=== PATIENT | female | born 1970 | race Caucasian/White ===

== ENCOUNTER 2016-11-20 10:38 | Observation (INO) | payer OTHER ==
[2016-11-20] MEDS ORDERED: Ondansetron INJ* 2 MG/ML VIAL ONE ×2 (11:24→13:10)
[2016-11-20] MEDS ORDERED: Scopolamine 1.5 mg* PATCH ONE (11:24)
[2016-11-20 11:37] LABS: Hematocrit 40 % (35-47); Hemoglobin 13.5 g/dl (12.0-16.0); Mean Corpuscular HGB Conc 34 g/dl (31-36); Mean Corpuscular Hemoglobin 31 pg (27-31); Mean Corpuscular Volume 93 fL (80-97); Mean Platelet Volume 8 um3 (7.4-10.4); Red Blood Count 4.31 10^6/ul (4.0-5.4); Red Cell Distribution Width 13 % (10.5-15)
[2016-11-20 11:51] LABS: Anion Gap 7 mmol/L (2-11); BUN/Creatinine Ratio 5.8 (8-20); Blood Urea Nitrogen 4 mg/dL (6-24); CO2 Carbon Dioxide 24 mmol/L (22-32); Calcium 9.3 mg/dL (8.6-10.3); Chloride 101 mmol/L (101-111); EGFR African American 118.3 (>60); Glucose 86 mg/dL (70-100); Potassium 3.7 mmol/L (3.5-5.0); Sodium 132 mmol/L (133-145)
[2016-11-20] MEDS ORDERED: LORazepam TAB(*) 1 MG PO ONE (12:00)
[2016-11-20] MEDS ORDERED: oxyCODONE SR TAB(*) 10 MG TAB.SR PO ONE (12:00)
[2016-11-20] MEDS ORDERED: ceFAZolin 1 GM in Dextrose (*) 1 GM/50 ML BAG IVPB ONE (12:00)
[2016-11-20] MEDS ORDERED: Ibuprofen TAB* 800 MG PO ONE (12:00)
[2016-11-20] MEDS ORDERED: Iohexol 350 (CONTRAST) 200 ML MDV IV ONE ×2 (12:35→14:47)
[2016-11-20] MEDS ORDERED: Heparin 2 UNITS/ML IVPREMIX* 2,000 ML IV ONE (12:36)
[2016-11-20] MEDS ORDERED: Midazolam* 1 MG/ML 5 ML VIAL (5 MG) ONE ×2 (12:42→14:45)
[2016-11-20] MEDS ORDERED: Lidocaine 1% INJ* 10 MG/ML 30 ML SDV ONE (12:42)
[2016-11-20] MEDS ORDERED: fentaNYL* 50 MCG/ML 2 ML VIAL (100 MCG VIAL) ONE ×4 (12:42→14:45)
[2016-11-20] MEDS ORDERED: Ketorolac INJ* 30 MG/ML 1 ML VIAL ONE ×4 (12:42→15:14)
[2016-11-20] MEDS ORDERED: nitroGLYCERIN DRIP* 0 ML ONE (12:43)
[2016-11-20] MEDS ORDERED: Metoclopramide IV* 5 MG/ML 2 ML VIAL ONE (13:15)
[2016-11-20] MEDS ORDERED: nitroGLYCERIN DRIP* 250 ML ONE (13:17)
[2016-11-20] MEDS ORDERED: HYDROmorphone* 1 MG/ML 1 ML SYR ONE ×4 (15:22→15:56)
[2016-11-20] MEDS: HYDROmorphone PCA* 20 MG/20 ML PCA.SYRING ONE ×2 (16:20→19:33)
[2016-11-20 16:59] VITALS: BP 143/102
--- NOTE | 2016-11-21 01:32 | HP ---
HISTORY AND PHYSICAL: DATE OF ADMISSION: 11/20/16 PRIMARY CARE PROVIDER: Dr. Marleny Ferrell. ATTENDING PHYSICIAN WHILE IN THE HOSPITAL: Aileen Jean MD* (report dictated by Alejandro Spann NP) CHIEF COMPLAINT: Uterine fibroid embolization. HISTORY OF PRESENT ILLNESS: Mrs. Mayers is a 45-year-old female patient who has had issues with uterine fibroids for sometime. She has had pelvic pain and irregular vaginal spotting. In addition to this, she has had menorrhagia and fibroid uterus. She had followed closely with her primary HAND TIER and was discussing options to help her. She had undergone ablation 4 years ago, but despite this the pelvic pain had become severe. She was having menstrual cramping. She is having heavy vaginal bleeding and her symptoms are becoming uncontrolled and she felt she needed further care. She sought care with Dr. Mitchell as she felt the best option would be a uterine fibroid embolization. She underwent evaluation on September 26 and it was felt that she would proceed with uterine fibroid embolization. She underwent the procedure today. We were asked to evaluate for admission. She was evaluated in the postoperative setting. She states that she is feeling well. She does have a significant amount of cramping and pain to her pelvic area. She denies having any nausea. She states she feels like she is having a severe menstrual cramp. She states the pain is 8/10. She denies having any chest pain, shortness of breath, back pain and denies having any chest pain. The patient states that she does not feel lightheaded or dizzy. We were asked to evaluate for admission. PAST MEDICAL HISTORY: Significant for: 1. Uterine fibroid. 2. Ovarian cyst. 3. Anxiety. PAST SURGICAL HISTORY: She has had an ablation. HOME MEDICATIONS: According to her preop list include: 1. OxyContin 10 mg every 8 hours as needed. 2. Sonata 10 mg at bedtime. 3. Tramadol 50 mg p.o. b.i.d. as needed. 4. Scopolamine patch 1 patch transdermally every 72 hours. 5. Zofran 4 mg every 6 hours as needed. 6. Naproxen 500 mg p.o. b.i.d. 7. Methylphenidate 20 mg p.o. as directed. 8. Melatonin 5 mg at bedtime. 9. Ativan 1 mg every 6 hours as needed. 10. Toradol 10 mg every 8 hours. 11. Ibuprofen 600 mg p.o. daily as needed. 12. Neurontin 300 mg at bedtime. 13. Colace 100 mg p.o. b.i.d. 14. Soma 350 mg p.o. t.i.d. as needed. 15. Calcium with vitamin D 1 tablet p.o. daily. ALLERGIES: To medications include no known drug allergies. FAMILY HISTORY: Mother is a type 2 diabetic. Father's history is reviewed and noncontributory. SOCIAL HISTORY: She does not smoke. Occasionally drinks alcohol. Surrogate decision maker is her . REVIEW OF SYSTEMS: There is no documented fever. She denied having any significant weight change. There was no double vision. There is no ear discharge. She denies having any recent rhinorrhea. No sore throat. No thyroid enlargement. Denies having any chest pain. There is no orthopnea. No nocturnal dyspnea. There is lower pelvic pain and uterine cramping. She denies having any nausea or vomiting. She denies any loss of consciousness. Review of 14 systems completed, all others were negative. PHYSICAL EXAMINATION GENERAL: At this time, Mrs. Mayers is a 45-year-old female patient. She does not appear to be in any acute distress. She is sitting in the postoperative bed. She is awake and alert. She is a little drowsy but she awakens to her name and follows commands. VITAL SIGNS: Reveal blood pressure 111/74, pulse 87, respirations 18, and O2 sat 100%. HEENT: Head is atraumatic, normocephalic. Eyes: EOMs are intact. Sclerae anicteric and not pale. NECK: Supple. Throat: Oral mucosa appears to be moist. No oropharyngeal erythema. LUNGS: Clear to auscultation bilaterally. No wheezes, rales, or rhonchi. HEART: Sounds S1, S2. Regular rate and rhythm. No murmurs, rubs, or gallops. ABDOMEN: Soft, flat, nontender. Bowel sounds were present. EXTREMITIES: Pulses were 2+ throughout. She is able to move the upper extremities with 5/5 strength. Lower extremities, she is not moving them as she did have a groin access. The distal CSM checks to the lower extremities are intact. NEUROLOGIC: She is awake, alert, and oriented x3. No gross focal deficits. SKIN: Intact. She has a puncture site to the right groin. It is clean, dry, and intact. Again, distal CSM checks are intact. DIAGNOSTIC STUDIES/LAB DATA: Labs preoperatively; sodium 132, potassium 3.7, chloride 101, bicarb 24, BUN 4, creatinine 0.69, and glucose 86. Beta-hCG is negative. WBC is 7.0, RBC of 4.31, hemoglobin 13.5, hematocrit 40, and platelet count 343. MRI of the pelvis showed MRI findings consistent with multiple uterine fibroids , largest submucosal fibroid with maximal dimension of 4.2 cm. Old medical records are reviewed. ASSESSMENT AND PLAN: Mrs. Mayers is a 45-year-old female patient coming into the interventional services today for an elective uterine fibroid embolization. We were asked to evaluate for admission. She will be admitted under observation status for: 1. Status post uterine fibroid embolization. We will defer the management to Dr. Mitchell's team. We did order antiemetics and we also ordered pain management. 2. Anxiety: Continue with supportive care. 3. History of uterine fibroids: She can follow with her primary HAND TIER and Dr. Mitchell. 4. Ovarian cyst: Follow with her primary HAND TIER. 5. DVT prophylaxis: I ordered SCDs. 6. Fluids, electrolytes, and nutrition: She can have a clear liquid diet and will progress to a regular diet. 7. Code status: Full code. TIME SPENT: Time spent on the admission was 60 minutes; greater than half the time was spent [id number] with the patient obtaining my history and physical, the other half time spent going over the plan of care with the patient and implementing plan of care. I discussed the plan of care with my attending, Dr. Jean, she is in agreement. ALEJANDRO SPANN NP CC: Dr. Marleny Ferrell; Dr. Mitchell * [id number]/[facility] #: [id number] MTDD
--- NOTE | 2016-11-22 02:41 | DS ---
AMENDED REPORT TO CORRECT [facility] CATH ACCOUNT DISCHARGE SUMMARY: DATE OF ADMISSION: 11/20/16 DATE OF DISCHARGE: 11/21/16 PRIMARY CARE PROVIDER: Dr. Marleny Ferrell. DISCHARGING PROVIDER: CASSIDY Mosqueda. SUPERVISING PHYSICIAN: Roberto Tian MD.* (DICTATED BY CASSIDY MOSQUEDA) INTERVENTIONAL RADIOLOGIST: Alek Mitchell MD. PRIMARY DISCHARGE DIAGNOSES: 1. Status post uterine fibroid embolization. 2. Anxiety. 3. Uterine fibroids. SECONDARY DISCHARGE DIAGNOSES: 1. Calcium vitamin D supplement 1 tablet p.o. daily. 2. Soma 350 mg p.o. t.i.d. 3. Docusate 100 mg p.o. b.i.d. x7 days. 4. Gabapentin 300 mg p.o. at bedtime. 5. Ibuprofen 600 mg p.o. b.i.d. as needed for pain. 6. Toradol 10 mg p.o. q.8 hours. 7. Ativan 1 mg p.o. q.6 hours as needed for anxiety. 8. Melatonin 5 mg p.o. at bedtime. 9. Methylphenidate 20 mg as directed. 10. Naproxen 500 mg p.o. b.i.d. 11. Zofran 4 mg p.o. q.6 hours x5 days. 12. Scopolamine patch 1 patch applied transdermally q.72 hours. 13. Tramadol 50 mg p.o. b.i.d. as needed for pain. 14. Sonata 10 mg p.o. at bedtime. 15. OxyContin 10 mg p.o. q.12 hours as needed for pain. MEDICATIONS CHANGES: 1. Docusate. 2. Toradol. 3. Zofran. 4. Scopolamine patch. 5. OxyContin. Of note, the patient was advised to not to take the naproxen and ibuprofen with ketorolac. HOSPITAL IMAGING: None, please see procedure notes from Dr. Mitchell. HOSPITAL COURSE: This is a 45-year-old female with history of symptomatic uterine fibroids who underwent uterine fibroid embolization by Dr. Mitchell, 11/20. The patient tolerated the procedure well. She experienced some significant pain and nausea overnight, but symptoms that are now well controlled with oral antiemetics and analgesic medications. The patient is given postcare instructions by Dr. Mitchell and will plan to be seen by him next week. The patient does have a history of anxiety which seemed to be adequately controlled during her hospital stay and did not contribute to any complications. DISPOSITION: The patient is being discharged to home. Followup with primary care provider and Dr. Mitchell is recommended. CASSIDY MOSQUEDA CC: Alek Mitchell MD; Dr. Marleny Ferrell * [id number]/[facility] #: [id number] MTDD
--- NOTE | 2016-11-26 19:37 | RAD ---
CPT II Codes: 6045F CPT I Codes: 58291, 94922, 07022, 30026, 17566, +[id number], 23669, +[id number], UTERINE ARTERY EMBOLIZATION FROM A RIGHT COMMON FEMORAL ARTERIOTOMY History: Pain and vaginal bleeding secondary to uterine fibroids. Comparison: MRI of the pelvis October 09, 2016 and ultrasound of the pelvis dated August 26, 2016 Anesthesia: Conscious sedation with IV Fentanyl and Versed as well as local 1% lidocaine injected locally at the arteriotomy site. Additional medications: . Toradol 50 mg IV. Toradol 30 mg intra-arterial (15 mg injected into each uterine artery). Scopolamine patch placed immediately before the embolization procedure. Ancef 1 g IV administered immediately before the procedure. 450 mcg IA nitroglycerin administered intermittently throughout the procedure to alleviate arterial spasm. Zofran 4 mg IV Reglan 10 mg IV Ativan 1 mg p.o. administered prior to the procedure. Oxycodone 10 mg p.o. administered prior to the procedure Ibuprofen 800 mg p.o. administered prior to the procedure. Contrast: 70 mL Omnipaque 350 Fluoroscopy Time: 32.3 minutes PROCEDURE NOTE AND INTRAPROCEDURAL IMAGING FINDINGS: Immediately prior to the procedure the patient signed consent after thoroughly discussing all risks and benefits. The patient was positioned on the fluoroscopy table in the supine position and the bilateral groins were shaved, prepped and draped in standard sterile fashion. Using fluoroscopic imaging the location of the right common femoral head was marked externally with a skin marker on the patient's groin. Utilizing sonographic guidance and palpation the right common femoral artery was cannulated overlying the right femoral head with an 18-gauge needle. An ultrasound images were saved. A 0.035" Bentson wire was slowly and smoothly advanced to the aortic bifurcation under fluoroscopic imaging. No buckling of the wire was visualized to indicate dissection. Over the wire the 5 Norwegian sidearm sheath was advanced centrally into the external iliac artery under fluoroscopic control. An arteriogram through the side arm of the sheath was performed demonstrating appropriate intraluminal access with brisk distal right lower extremity arterial flow. Utilizing a Bentson wire and 5-Norwegian Contra 2 flush catheter the left common iliac artery was accessed and imaged angiographically. Contrast angiography was performed to detail the branches of the anterior posterior divisions of the left internal iliac artery which had depicted the uterine artery providing blood flow to the patient's uterus and fibroids. Contrast blush was observed outlining the patient's fibroid uterus. Arteriograms in multiple oblique projections were performed to best discern the branch point of the uterine artery. Once the uterine artery was identified, a Renegade High-flow microcatheter and microwire were advanced into the parent catheter and, in conjunction with contrast angiography, the uterine artery was identified and selected with the micro catheter. Prior to embolization, contrast injection in the lateral portion of the uterine artery demonstrated no large, obvious collateral blood flow to the ovaries and a definite cervicovaginal branch was not seen descending inferiorly. Intra-arterial nitroglycerin was intermittently injected to alleviate arterial spasm. Under fluoroscopic control approximately 1/2 vial of 500 micron Embozenes followed by \\R\\1/2 vial of 700 micron Embozenes were slowly injected into the uterine artery to near complete stasis. [place] through the embolization 15 mg of Toradol was injected intra-arterially. The microcatheter was pulled back into the more proximal descending portion of the uterine artery and contrast angiography depicted near complete stasis of the uterine artery. The microcatheter was removed and replaced with the Jimdoson 0.035" guidewire. Utilizing the Borjas wire a "Isaiah Loop" was formed in the inferior aorta and the wire and catheter combination were utilized to access the ipsilateral right common iliac artery and then select the ipsilateral right internal iliac artery. Once the right uterine artery was identified, the Renegade High-flow microcatheter and microwire were advanced into the parent catheter and, in conjunction with contrast angiography, the uterine artery was identified and selected with the micro catheter. Prior to embolization, contrast injection in the lateral portion of the uterine artery demonstrated no large, obvious collateral blood flow to the ovaries and a definite cervicovaginal branch was not seen descending inferiorly. Intra-arterial nitroglycerin was intermittently injected to alleviate arterial spasm. Under fluoroscopic control the remaining 1/2 vial of 500 micron Embozenes followed by the remaining \\R\\1/4 vial of 700 micron Embozenes were slowly injected into the uterine artery to near complete stasis. [place] through the embolization 15 mg of Toradol was injected intra-arterially. The microcatheter was pulled back into the more proximal descending portion of the uterine artery and contrast angiography depicted near complete stasis of the uterine artery. The micro catheter was removed, replaced with a 0.035" wire and the Isaiah's loop was used to access the contralateral left common iliac artery, takedown the loop in the catheter and then remove both the wire and catheter. The access sheath was removed and pressure was held at the common femoral arteriotomy for approximately 15 minutes. There were no signs of bleeding at the right groin access site and the site was dressed with sterile gauze and Tegaderm. The patient tolerated the procedure well and was transferred to the short stay recovery unit in stable condition for routine overnight observation and pain and nausea control. IMPRESSION: 1. Pelvic arteriography demonstrates a large uterine fibroid. 2. Pelvic arteriography as described in the body of the report. 3. Successful bilateral uterine artery embolization utilizing a total of 1 full vial of 500 micron Embozenes and \\R\\3/4 vial 700 micron Embozenes. 4. Post embolization uterine arteriography demonstrates near complete stasis of blood flow in each uterine artery. Plan: 1. The patient is to be admitted to short state recovery unit for routine overnight observation and pain and nausea control. 2. Outpatient management and follow-up according to Interventional Radiology protocol.
== END 2016-11-21 13:10 | disposition home or self-care (01) ==
LOC: CHICATH 10:38 → SSU 16:05
PROVIDERS: ADMIT Radiology Diagnostic Radiology; ATTEND Radiology Diagnostic Radiology
DX: D25.9 Leiomyoma of uterus, unspecified (principal)
CPT/HCPCS: 36415; 37243; 80048; 84702; 85025; 94760; A9270-GY; C1887; J0690; J1170; J1644; J1885; J2001; J2250; J2270; J2405; J3010

== ENCOUNTER 2018-09-25 08:11 | Emergency (ER) | payer OTHER ==
[2018-09-25 08:18] VITALS: BP 154/100
--- NOTE | 2018-09-25 08:43 | UC ---
Elbow Pain - HPI Summary HPI Summary: Slipped and fell on the ice last night and landed directly on right elbow. Has pain and inability to move at the right elbow. - History of Current Complaint Chief Complaint: UCUpperExtremity Stated Complaint: R ARM INJURY Time Seen by Provider: 09/25/18 08:37 Hx Obtained From: Patient Hx Last Menstrual Period: unk Onset/Duration: Hours Severity Initially: Moderate Severity Currently: Moderate Pain Intensity: 6 Pain Scale Used: 0-10 Numeric Location Of Pain: Is Discrete @ - RIGHT ELBOW Character: Sharp Aggravating Factor(s): Movement Alleviating Factor(s): Nothing Associated Signs And Symptoms: Positive: Swelling - Allergies/Home Medications Allergies/Adverse Reactions: Allergies Allergy/AdvReac Type Severity Reaction Status Date / Time No Known Allergies Allergy Verified 09/25/18 08:18 Home Medications: Home Medications Bupropion XL* [Wellbutrin XL *] 150 mg PO DAILY 09/25/18 [History Confirmed 04/05] Ibuprofen [Advil] 600 mg PO ONCE PRN 09/25/18 [History Confirmed 09/25/18] Zolpidem Tartrate [Ambien] 10 mg PO QPM PRN 09/25/18 [History Confirmed 09/25/18 ] PMH/Surg Hx/FS Hx/Imm Hx Previously Healthy: Yes - Surgical History Surgical History: None - Family History Known Family History: Positive: Non-Contributory - Social History Alcohol Use: Occasionally Substance Use Type: None Smoking Status (MU): Never Smoked Tobacco Review of Systems All Other Systems Reviewed And Are Negative: Yes Constitutional: Positive: Negative Respiratory: Positive: Negative Cardiovascular: Positive: Negative Gastrointestinal: Positive: Negative Musculoskeletal: Positive: Arthralgia, Decreased ROM, Edema Physical Exam Triage Information Reviewed: Yes Appearance: Well-Appearing, Well-Nourished, Pain Distress - MODERATE Vital Signs: Initial Vital Signs Temp 98 F 09/25/18 08:15 Pulse 88 09/25/18 08:15 Resp 17 09/25/18 08:15 BP 154/100 09/25/18 08:15 Pulse Ox 100 09/25/18 08:15 Vital Signs Reviewed: Yes Eyes: Positive: Conjunctiva Clear ENT: Positive: Hearing grossly normal Neck: Positive: Supple Respiratory: Positive: No respiratory distress, No accessory muscle use Cardiovascular: Positive: Pulses Normal, Brisk Capillary Refill Abdomen Description: Positive: Soft Musculoskeletal: Positive: ROM Limited @ - RIGHT ELBOW, Edema @ - RIGHT ELBOW, Other: - TTP DIFFUSELY RIGHT ELBOW - WORST MEDIAL EPICONDYLE Neurological: Positive: Alert Psychological: Positive: Age Appropriate Behavior Skin: Negative: Rashes Procedures - Splinting Right Upper Extremity Hand-Made Type: orthoglass Splint: POSTERIOR LONG ARM Pre-Proc Neuro Vasc Exam: normal Post-Proc Neuro Vasc Exam: normal Diagnostics - Radiology RIGHT ELBOW XRAY Radiology Interpretation Completed By: Radiologist Summary of Radiographic Findings: SLIGHTLY DEPRESSED FRACTURE OF THE RADIAL HEAD. Elbow Pain Course/Dx - Course Course Of Treatment: SLIGHTLY DEPRESSED FRACTURE OF THE RADIAL HEAD ON XRAY TODAY. POSTERIOR SPLINT AND SLING APPLIED. ZOFRAN FOR NAUSEA. IBUPROFEN FOR PAIN. HYDROCODONE FOR BREAKTHROUGH PAIN. ADVISED TO BE CAUTIOUS SHE HAS OTHER SEDATING MEDS AT HOME. APPLY ICE. F/U ORTHO NEXT WEEK. Reference #: [id number] - Differential Dx/Diagnosis Provider Diagnosis: Right radial head fracture Discharge - Sign-Out/Discharge Documenting (check all that apply): Patient Departure All imaging exams completed and their final reports reviewed: Yes - Discharge Plan Condition: Stable Disposition: HOME Prescriptions: HYDROcodone/ACETAMIN 5-325 MG* [[place] 5-325 TAB*] 1 tab PO Q6H PRN #20 tab MDD 4 PRN Reason: Pain Ondansetron ODT TAB* [Zofran Odt TAB*] 4 mg PO Q6H PRN #20 tab.odt PRN Reason: Nausea/Vomiting Patient Education Materials: Elbow Fracture (ED) Referrals: Marleny Ferrell MD [Primary Care Provider] - If Needed Buddy Daigle MD [Medical Doctor] - 5 Days Additional Instructions: XRAY OF YOUR RIGHT ELBOW TODAY SHOWED A SLIGHTLY DEPRESSED FRACTURE OF THE RADIAL HEAD. CALL ORTHO TODAY FOR A FOLLOW-UP APPT NEXT WEEK. KEEP THE SPLINT ON UNTIL SEEN BY ORTHO. IBUPROFEN NEEDED FOR PAIN. HYDROCODONE FOR BREAKTHROUGH. BE SURE TO ICE IT FOR 20 MINUTES AT A TIME 4-5 TIMES DAILY. TAKE THE HYDROCODONE WITH CAUTION GIVEN YOUR OTHER SEDATING MEDS AT HOME. GO TO THE ER WITHOUT FAIL IF YOU DEVELOP INCREASING PAIN OR NUMBNESS/COLOR CHANGE IN YOUR HAND/FINGERS. - Billing Disposition and Condition Condition: STABLE Disposition: Home
[2018-09-25] MEDS ORDERED: Ibuprofen TAB* 600 MG PO ONE (09:27)
[2018-09-25] MEDS ORDERED: Ondansetron ODT TAB* 4 MG PO ONE (09:42)
== END 2018-09-25 11:00 | disposition home or self-care (01) ==
LOC: UCEAST 08:11
DX: S52.121A Displaced fracture of head of right radius, initial encounter for closed fracture (principal); W00.0XXA Fall on same level due to ice and snow, initial encounter; Y92.9 Unspecified place or not applicable
CPT/HCPCS: 99212; A9270-GY; G0463

== ENCOUNTER 2019-07-24 09:44 | Emergency (ER) | payer OTHER ==
--- NOTE | 2019-07-24 09:57 | UC ---
Minor Trauma HPI - HPI Summary HPI Summary: Pt presents to emergency Department by private vehicle. Patient is a 48-year- old female who states of prostate 2 hours ago she was trying to climb a total loft in her bathroom. Patient states she slipped off the edge loft and fell onto the ground. Patient did not strike her head. No blood HEENT. Did not lose consciousness. Patient states she landed primarily on her right side. Patient states was able to get her cell phone and call her father who came to help her get up and the couch. Patient here with persistent pain in her right wrist, right elbow, right ribs, and right back. No neck pain. No chest pain or shortness of breath but pain when she takes a deep breath in her right ribs. No abdominal pain. Patient was some mild intermittent nausea but no vomiting. No change or loss of cot bowel bladder control. No numbness or tingling in the legs. No pain in her left upper extremity. Patient is not on anticoagulation. Patient did take 400 mg of Motrin prior to the fall. Patient does take Ativan, gabapentin, and Adderall as needed. Other medications as entered in the EMR but the triage which were reviewed. - History of Current Complaint Stated Complaint: fell , ribs, wirst, backpain Time Seen by Provider: 07/24/19 09:57 Hx Obtained From: Patient Hx Last Menstrual Period: unk Severity Initially: Severe Severity Currently: Severe Pain Scale Used: 0-10 Numeric Mechanism Of Injury: Blunt Trauma Aggravating Factor(s): Deep Breaths - right rib pain, Movement Associated Signs And Symptoms: Negative: Loss Of Consciousness - Allergies/Home Medications Allergies/Adverse Reactions: Allergies Allergy/AdvReac Type Severity Reaction Status Date / Time No Known Allergies Allergy Verified 07/24/19 10:03 PMH/Surg Hx/FS Hx/Imm Hx - Surgical History Surgical History: None - Family History Known Family History: Positive: Non-Contributory - Social History Alcohol Use: Occasionally Substance Use Type: None Smoking Status (MU): Never Smoked Tobacco Review of Systems All Other Systems Reviewed And Are Negative: Yes Constitutional: Positive: Negative Skin: Positive: Negative Eyes: Positive: Negative Cardiovascular: Positive: Other - right ribs Gastrointestinal: Positive: Nausea. Negative: Abdominal Pain Genitourinary: Positive: Negative Motor: Positive: Other - right wrist,right rib, right back Physical Exam - Summary Physical Exam Summary: Vital Signs Reviewed: Yes A+Ox3, no distress Eyes: Conjunctiva Clear, [place]. EOM intact and full ENT: Hearing grossly normal TM x 2 clear no hemotymp, no septal hematoma, mmoist, uvula midline, no exudate, no erythema, no blood oropharynx Neck: Positive: Supple no c spine pain Respiratory: Positive: No respiratory distress, splinting right ribs with shallow respirations decreased BS bases Cardiovascular: RRR tachycardia nl s1, s2 no m/r CBT <2 sec abd soft + BS nt/nd no guarding, no distension no ecchymosis Pt reports pain in back with palpation RLQ Musculoskeletal Exam: GAMBOA x 4 without difficulty Strength Intact, ROM Intact Neurological: Positive: Alert, + sensation throughout Psychological: Positive: Normal Response To examiner Skin: Positive: no rash, no ecchymosis Triage Information Reviewed: Yes Minor Trauma Course/Dx - Course Course Of Treatment: Patient presents to urgent care with her father. Patient fell 7 feet from a loft in her house approximately 2 hours ago. Patient with pain in her right ribs right wrist. On exam patient obvious discomfort. Patient to take Motrin 400 mg prior to the fall. Patient vital signs show an elevated heart rate. Patient has pain with palpation along the right ribs were shallow respirations. Patient belly is soft with no bruising but does have pain or back with palpation in the right lower artery. Patient's pain and right wrist. Discussed with patient and father. We'll place an IV gives some analgesia and antiemetic. We'll splint wrist. Recommended patient emergency department for further evaluation and treatment. Patient comfortable with the plan. Basal recall. Her port given to Timothy Monzon, physician's project administrative assistant in the emergency department. Patient is not on any anticoagulation. - Differential Dx/Diagnosis Provider Diagnosis: Fall, Wrist injury, Rib injury Discharge ED - Sign-Out/Discharge Documenting (check all that apply): Patient Departure All imaging exams completed and their final reports reviewed: No Studies - Discharge Plan Condition: Good Disposition: TRANS HIGHER LVL OF CARE FAC Referrals: Marleny Ferrell MD [Primary Care Provider] - - Billing Disposition and Condition Condition: GOOD Disposition: Trans Higher Lvl of Care Fac
[2019-07-24 10:03] VITALS: BP 174/103
[2019-07-24] MEDS ORDERED: Morphine 10 MG/ML VIAL (1 ml) IV ONE (10:07)
[2019-07-24] MEDS ORDERED: NS 0.9% 1000 ML** 1,000 ML IV ONE (10:07)
[2019-07-24] MEDS ORDERED: Ondansetron INJ* 2 MG/ML VIAL IV ONE (10:07)
== END 2019-07-24 10:37 | disposition short-term general hospital (02) ==
LOC: UCEAST 09:44
DX: S29.9XXA Unspecified injury of thorax, initial encounter (principal); S69.91XA Unspecified injury of right wrist, hand and finger(s), initial encounter; R11.0 Nausea; W01.0XXA Fall on same level from slipping, tripping and stumbling without subsequent striking against object, initial encounter; Y92.009 Unspecified place in unspecified non-institutional (private) residence as the place of occurrence of the external cause
CPT/HCPCS: 96360; 96374; 96376; 99213; G0463; J2270; J2405

== ENCOUNTER 2019-07-24 10:52 | Emergency (ER) | payer OTHER ==
--- NOTE | 2019-07-24 11:27 | ED ---
Adult Trauma - HPI Summary HPI Summary: This patient is a 48 year old F brought to [facility] by EMS accompanied by father with a chief complaint of pain due to fall since 829 today 07/24/19, per triage , with current pain rated at 4/10 (Zofran and morphine given for pain). Symptoms aggravated by nothing. Symptoms alleviated by nothing. Patient reports she fell off of a ladder 6 ft tall (she was at the top) and fell on her back more towards her right side. Pt reports her right wrist is where the pain is worst with some right shoulder pain, and right rib tenderness going down the side with sharp pains in the rib when breathing in and out. Pt denies any serious back pain. Pt denies LOC but does not know if she hit her head. Pt denies any X-rays taken for injury. Pt reports dislocated right elbow last winter and denies chronic pain. - History of Current Complaint Chief Complaint: EDFall Stated Complaint: FALL PER EMS Time Seen by Provider: 07/24/19 11:07 Hx Obtained From: Patient Hx Last Menstrual Period: unk Mechanism of Injury: Fall Loss of Consciousness: no loss of consciousness Onset/Duration: Started Hours Ago, Still Present Current Severity: Mild Pain Intensity: 4 Pain Scale Used: 0-10 Numeric Location: Extremities, Other - ribs Aggravating Factor(s): Nothing Alleviating Factor(s): Nothing Associated Signs & Symptoms: Positive: Other: - right wrist pain, right shoulder pain, and right rib pain; denies back pain - Additional Pertinent History Primary Care Physician: ELLA - Allergy/Home Medications Allergies/Adverse Reactions: Allergies Allergy/AdvReac Type Severity Reaction Status Date / Time amoxicillin Allergy GI Upset Verified 07/24/19 11:02 PMH/Surg Hx/FS Hx/Imm Hx Endocrine/Hematology History: Denies: Hx Diabetes, Hx Thyroid Disease Cardiovascular History: Denies: Hx Hypertension, Hx Pacemaker/ICD Respiratory History: Denies: Hx Asthma, Hx Chronic Obstructive Pulmonary Disease (COPD) GI History: Denies: Hx Ulcer History: Denies: Hx Renal Disease Sensory History: Denies: Hx Contacts or Glasses, Hx Hearing Aid Opthamlomology History: Denies: Hx Contacts or Glasses Psychiatric History: Reports: Hx Depression - RECENT DEPRESSION- Denies: Hx Panic Disorder - Surgical History Surgery Procedure, Year, and Place: uterine ablasion, surgery to block the arteries to her uterus. Infectious Disease History: No Infectious Disease History: Denies: Hx Hepatitis, Hx Human Immunodeficiency Virus (HIV), Traveled Outside the [place] in Last 30 Days - Family History Known Family History: Positive: Hypertension, Diabetes - Social History Alcohol Use: Occasionally Hx Substance Use: No Substance Use Type: Reports: None Hx Tobacco Use: No Smoking Status (MU): Never Smoked Tobacco Review of Systems Negative: Fever Positive: Other - fall, right wrist pain, right shoulder pain, and right rib pain; denies back pain All Other Systems Reviewed And Are Negative: Yes Physical Exam - Summary Physical Exam Summary: VITAL SIGNS: Reviewed. GENERAL: Patient is a well-developed and nourished FEMALE who is lying comfortable in the stretcher. Patient is not in any acute respiratory distress. HEAD AND FACE: No signs of trauma. No ecchymosis, hematomas or skull depressions. No sinus tenderness. EYES: PERRLA, EOMI x 2, No injected conjunctiva, no nystagmus. EARS: Hearing grossly intact. Ear canals and tympanic membranes are within normal limits. MOUTH: Oropharynx within normal limits. NECK: Supple, trachea is midline, no adenopathy, no JVD, no carotid bruit, no c- spine tenderness, neck with full ROM. CHEST: right rib cage tenderness in mid axillary line LUNGS: Clear to auscultation bilaterally. No wheezing or crackles. CVS: Regular rate and rhythm, S1 and S2 present, no murmurs or gallops appreciated. ABDOMEN: Soft, non-tender. No signs of distention. No rebound, no guarding, and no masses palpated. Bowel sounds are normal. EXTREMITIES: Decreased range of motion in right wrist, right shoulder, secondary to pain good pulses and good capillary fill NEURO: Alert and oriented x 3. No acute neurological deficits. Speech is normal and follows commands. SKIN: Dry and warm. Triage Information Reviewed: Yes Vital Signs On Initial Exam: Initial Vitals Temp Pulse Resp BP Pulse Ox 97.3 F 108 18 182/112 96 07/24/19 11:00 07/24/19 11:00 07/24/19 11:00 07/24/19 11:00 07/24/19 11:00 Vital Signs Reviewed: Yes Procedures - Sedation Patient Received Moderate/Deep Sedation with Procedure: No - Incision and Drainage Site: - Splinting Right Upper Extremity Location: right wrist Hand-Made Type: fiberglass Pre-Proc Neuro Vasc Exam: normal Post-Proc Neuro Vasc Exam: normal Splint Applied by Provider: Elian Patrick - Vital Signs Vital Signs Temp Pulse Resp BP Pulse Ox 07/24/19 11:00 97.3 F 108 18 182/112 96 - Laboratory Lab Statement: Any lab studies that have been ordered have been reviewed, and results considered in the medical decision making process. - Radiology Wrist X-Ray Radiology Interpretation Completed By: Radiologist Summary of Radiographic Findings: Per radiologist,. Nondisplaced transversely oriented fracture through the ulnar styloid with surrounding. soft tissue swelling. ED physician has reviewed this imaging report. Shoulder X-Ray Radiology Interpretation Completed By: Radiologist Summary of Radiographic Findings: Per radiologist,. NO FRACTURE IDENTIFIED. ED physician has reviewed this imaging report. Ribs w/ Chest X-Ray Radiology Interpretation Completed By: Radiologist Summary of Radiographic Findings: Per radiologist,. 1. No displaced rib fracture by radiograph. 2. No pneumothorax. ED physician has reviewed this imaging report. Hand X-Ray Radiology Interpretation Completed By: Radiologist Summary of Radiographic Findings: Per radiologist,. 1. No fracture identified in the hand. 2. See separately dictated wrist radiograph for description of the suspected nondisplaced. ulnar styloid process fracture. ED physician has reviewed this imaging report. Re-Evaluation - Re-Evaluation First Eval Re-Evaluation Time: 13:26 Comment: Physician discusses results from x-rays to patient and following steps in plan of care. Adult Trauma Course/Dx - Course Assessment/Plan: This patient is a 48-year-old female who presents to the emergency department via ambulance after the patient was transferred from urgent care. The patient reports that she was going up the ladder, which was approximately 6 feet exam, when before she got to the last step, she fell backwards. She reports that she probably fell from 4-5 feet above the ground. She denies any head trauma, neck trauma, denies any neck or back pain. She reports that she fell mostly on the right side of the body. Therefore she is complaining of right shoulder pain, right rib cage, and right wrist pain. She denies any loss of consciousness. Last menstrual cycle was 2 weeks ago. Hand X- ray IMPRESSION: 1. No fracture identified in the hand. 2. See separately dictated wrist radiograph for description of the suspected nondisplaced. Wrist x-ray IMPRESSION: Nondisplaced transversely oriented fracture through the ulnar styloid with surrounding. soft tissue swelling. Ribs and chest x-ray IMPRESSION: 1. No displaced rib fracture by radiograph. 2. No pneumothorax. Shoulder x-ray IMPRESSION: NO FRACTURE IDENTIFIED. In the ED course the patient was given morphine and Toradol for the pain. I placed a sugar tong in the right upper extremity. Patient will be discharged home and follow-up with primary care physician and orthopedics. Patient was given a shoulder sling. - Diagnoses Differential Diagnosis/HQI/PQRI: Positive: Contusion(s), Fracture, Dislocation, Hematoma(s), Laceration(s), Sprain, Strain Provider Diagnoses: Fracture of ulnar styloid, Fall Discharge ED - Sign-Out/Discharge Documenting (check all that apply): Patient Departure - discharge - Discharge Plan Condition: Stable Disposition: HOME Prescriptions: HYDROcodone/ACETAMIN 5-325 MG* [[place] 5-325 TAB*] 1 tab PO Q6H PRN #10 tab MDD 4 PRN Reason: Pain - Moderate Patient Education Materials: Wrist Fracture in Adults (ED) Referrals: Marleny Ferrell MD [Primary Care Provider] - 3 Days Buddy Daigle MD [Medical Doctor] - 3 Days - Billing Disposition and Condition Condition: STABLE Disposition: Home - Attestation Statements Document Initiated by Scribe: Yes Documenting Scribe: Shanelle Brady Provider For Whom Yael is Documenting (Include Credential): Dr. Elian Patrick MD Scribe Attestation: Shanelle Garcia scribed for Dr. Elian Patrick MD on 07/25/19 at 1857. Scribe Documentation Reviewed: Yes Provider Attestation: The documentation as recorded by the Shanelle gallardo accurately reflects the service I personally performed and the decisions made by me, Dr. Elian Patrick MD Status of Scribe Document: Viewed
[2019-07-24] MEDS ORDERED: Morphine 4 MG/ML VIAL (1 ml) 4 MG/ML VIAL IV ONE (12:32)
[2019-07-24] MEDS ORDERED: Ketorolac INJ* 30 MG/ML 1 ML VIAL IV PUSH ONE (14:12)
[2019-07-24 15:08] VITALS: BP 125/71
== END 2019-07-24 15:05 | disposition home or self-care (01) ==
LOC: ED 10:52
DX: S52.614A Nondisplaced fracture of right ulna styloid process, initial encounter for closed fracture (principal); W11.XXXA Fall on and from ladder, initial encounter; Y92.9 Unspecified place or not applicable; Z88.0 Allergy status to penicillin
CPT/HCPCS: 96374; 96375; 99284; J1885; J2270

== ENCOUNTER 2019-07-27 10:51 | Emergency (ER) | payer OTHER ==
[2019-07-27 11:02] VITALS: BP 143/97
--- NOTE | 2019-07-27 11:59 | UC ---
Truncal Trauma HPI - HPI Summary HPI Summary: 48 yo female presents with right rib pain. She tells me that 3 days ago she fell off a ladder and was seen in the ER. Fracture to right wrist, but imaging of chest/ribs/back were normal per pt. She was given a prescription for norco and advised to f/u with Ortho. She has taken the norco, which has helped her pain, but today is out of medication and has noticed increased pain to her right ribs and lower back. Worse with movement, coughing, and sneezing. She is ambulatory without assistance. Denies radiation of pain, numbness, tingling, saddle anesthesia, or loss of bowel/bladder control, dysuria, SOB, chest pain. - History Of Current Complaint Chief Complaint: UCTrauma Stated Complaint: RECHECK OF RIB INJURY Time Seen by Provider: 07/27/19 11:59 Hx Obtained From: Patient Hx Last Menstrual Period: unk Onset/Duration: Sudden Onset Severity Initially: Severe Severity Currently: Moderate Pain Intensity: 6 - Allergies/Home Medications Allergies/Adverse Reactions: Allergies Allergy/AdvReac Type Severity Reaction Status Date / Time amoxicillin Allergy GI Upset Verified 07/27/19 11:04 Home Medications: Home Medications LORazepam [Ativan 1 MG TAB] 1 mg PO DAILY WITH MEAL 07/27/19 [History Confirmed 07/27/19] PMH/Surg Hx/FS Hx/Imm Hx - Additional Past Medical History Additional PMH: ADHD Psychological History: Anxiety, Depression - Surgical History Surgical History: None Surgery Procedure, Year, and Place: uterine ablasion, surgery to block the arteries to her uterus. - Family History Known Family History: Positive: Hypertension, Diabetes - Social History Lives: With Family Alcohol Use: Occasionally Substance Use Type: None Smoking Status (MU): Never Smoked Tobacco Review of Systems All Other Systems Reviewed And Are Negative: No Constitutional: Positive: Negative Skin: Positive: Negative Respiratory: Positive: Negative Cardiovascular: Positive: Negative Neurovascular: Positive: Negative Musculoskeletal: Positive: Other: - Right rib pain. Lower back pain Neurological: Positive: Negative Psychological: Positive: Negative Physical Exam - Summary Physical Exam Summary: GENERAL: NAD. WDWN. No pain distress. SKIN: No rashes, sores, lesions, or open wounds. NECK: Supple. FROM. Nontender. No lymphadenopathy. CHEST: CTAB. No r/r/w. No accessory muscle use. Breathing comfortably and in no distress. CV: RRR. Pulses intact. Cap refill <2seconds MSK: TTP over lumbar paraspinal muscles. Pain with flexion and extension of spine. Positive SLR b/l for low back pain without radiation. Strength 5/5 B/L LEs including dorsiflexion and plantar flexion. FROM B/L LEs. No edema. RIGHT RIBS: Approx rib 7-8th TTP posterior. No ecchymosis or erythema. Pain in this area with movement of UEs and truncal twisting. NEURO: Alert. Sensations intact B/L LEs L3-S1. Reflexes intact PSYCH: Age appropriate behavior. Triage Information Reviewed: Yes Vital Signs: Initial Vital Signs Temp 98.1 F 07/27/19 10:59 Pulse 97 07/27/19 10:59 Resp 18 07/27/19 10:59 BP 143/97 07/27/19 10:59 Pulse Ox 97 07/27/19 10:59 Vital Signs Reviewed: Yes Diagnostics - Radiology Lumbar XR Radiology Interpretation Completed By: Radiologist Summary of Radiographic Findings: IMPRESSION: #. No radiographic evidence for traumatic lumbar sacral spine injury. Rib XR Radiology Interpretation Completed By: Radiologist Summary of Radiographic Findings: IMPRESSION: #. Negative exam. Truncal Trauma Course/Dx - Course Course Of Treatment: Reference #: [id number] XRs as above. Suspect rib contusion and pain from fall. Will refill her norco rx and encourage her to continue rest, ice, and take slow deep breaths. Recheck by PCP in 3-5 days - Differential Dx/Diagnosis Provider Diagnosis: Rib contusion Discharge ED - Sign-Out/Discharge Documenting (check all that apply): Patient Departure All imaging exams completed and their final reports reviewed: Yes - Discharge Plan Condition: Stable Disposition: HOME Prescriptions: HYDROcodone/ACETAMIN 5-325 MG* [[place] 5-325 TAB*] 1 tab PO TID PRN 4 Days #12 tab MDD 3 PRN Reason: Pain - Moderate Patient Education Materials: Rib Contusion (ED) Referrals: No Primary Care Phys,NOPCP [Primary Care Provider] - Additional Instructions: If you develop a fever, shortness of breath, chest pain, new or worsening symptoms - please call your PCP or go to the ED immediately. Your blood pressure was high at todays visit. Please see your primary provider within 4 weeks for recheck and re-evaluation. The X-rays today did not show any broken bones. - Billing Disposition and Condition Condition: STABLE Disposition: Home
== END 2019-07-27 12:52 | disposition home or self-care (01) ==
LOC: UCEAST 10:51
DX: S20.211A Contusion of right front wall of thorax, initial encounter (principal); F90.9 Attention-deficit hyperactivity disorder, unspecified type; F41.9 Anxiety disorder, unspecified; Z88.0 Allergy status to penicillin; W11.XXXA Fall on and from ladder, initial encounter; Y92.9 Unspecified place or not applicable; Z79.899 Other long term (current) drug therapy
CPT/HCPCS: 72110; 99212; G0463